=== PATIENT | female | born 1970 | race Hispanic/Latino ===

== ENCOUNTER 2018-08-27 09:22 | Emergency (ER) | payer BC ==
[2018-08-27 09:54] LABS: BASOPHILS % (AUTO) 0.4 % (0.0-5.0); EOSINOPHILS % (AUTO) 1.2 % (0.0-8.0); HEMATOCRIT 43.3 % (36-48); LYMPHOCYTES % (AUTO) 26.5 % (21.0-51.0); MEAN CORPUSCULAR HEMOGLOBIN 29.9 pg (27.0-33.0); MEAN CORPUSCULAR HGB CONC 33.9 g/dL (32.0-36.0); MEAN CORPUSCULAR VOLUME 88.3 fL (79-99); MONOCYTES % (AUTO) 7.1 % (3.0-13.0); NEUTROPHILS % (AUTO) 64.8 % (40.0-77.0); NUCLEATED RED BLOOD CELLS 0.1 % (0.0-0.19); PLATELET COUNT (AUTO) 170 K/uL (130-400); RED BLOOD CELL COUNT(AUTO) 4.91 MIL/uL (4.00-5.50); RED CELL DISTRIBUTION WIDTH 13.4 % (11.0-15.5); WHITE BLOOD COUNT (AUTO) 6.1 K/uL (4.8-10.8)
[2018-08-27 10:04] LABS: CREATININE 0.3 mg/dL (0.5-1.5); POTASSIUM 3.4 mmol/L (3.5-5.1)
[2018-08-27 10:07] LABS: INR 1.04 (0.85-1.15); PARTIAL THROMBOPLASTIN TIME 29.5 SEC (26.3-35.5); PROTHROMBIN TIME 10.9 SEC (9.6-11.6)
[2018-08-27 10:18] LABS: B-TYPE NATRIURETIC PEPTIDE 18 pg/mL (0-100)
[2018-08-27 10:19] LABS: ALBUMIN 4.3 g/dL (3.5-5.0); TOTAL PROTEIN, SERUM 8.8 g/dL (6.0-8.3)
== END 2018-08-27 14:03 | disposition home or self-care (01) ==
LOC: EDH 09:22
DX: R07.89 Other chest pain (principal); I10 Essential (primary) hypertension; Z90.710 Acquired absence of both cervix and uterus; Z88.2 Allergy status to sulfonamides; Z88.1 Allergy status to other antibiotic agents; Z88.8 Allergy status to other drugs, medicaments and biological substances
CPT/HCPCS: 36415; 71045; 80053; 82550; 83874; 83880; 84484; 85025; 85610; 85730; 93005

== ENCOUNTER 2020-11-06 13:24 | Inpatient (IN) | payer BC ==
[~2020-11-06] VITALS: Ht 152.4 cm; Wt 95.0 kg
[2020-11-06 13:38] VITALS: BP 140/79
[2020-11-06 13:55] LABS: BASOPHILS % (AUTO) 0.3 % (0.0-5.0); HEMATOCRIT 38.4 % (36-48); LYMPHOCYTES % (AUTO) 31.5 % (21.0-51.0); MEAN CORPUSCULAR HEMOGLOBIN 28.5 pg (27.0-33.0); MEAN CORPUSCULAR VOLUME 88.9 fL (79-99); MONOCYTES % (AUTO) 8.3 % (3.0-13.0); NEUTROPHILS % (AUTO) 56.6 % (40.0-77.0); PLATELET COUNT (AUTO) 171 K/uL (130-400); RED BLOOD CELL COUNT(AUTO) 4.32 MIL/uL (4.00-5.50); RED CELL DISTRIBUTION WIDTH 12.6 % (11.0-15.5); WHITE BLOOD COUNT (AUTO) 6.3 K/uL (4.8-10.8)
[2020-11-06] MEDS ORDERED: NITROGLYCERIN 0.4 MG SL TAB SL PRN (14:00)
[2020-11-06] MEDS ORDERED: 0.9%NACL 10ML VIAL IVP PRN (14:00)
[2020-11-06] MEDS ORDERED: ZOLPIDEM TARTRATE 5 MG TAB PO PRN (14:00)
[2020-11-06] MEDS ORDERED: LACTULOSE 20 GM/30 ML UDCUP PO PRN (14:00)
[2020-11-06] MEDS ORDERED: MAG/ALUM/SIMETH 30 ML UDCUP PO PRN (14:00)
[2020-11-06] MEDS ORDERED: ACETAMINOPHEN 325 MG TAB PO PRN (14:00)
[2020-11-06] MEDS ORDERED: 0.9%NACL 10ML VIAL IVP SCH (14:00)
[2020-11-06] MEDS ORDERED: ONDANSETRON 4MG INJ IVP PRN (14:00)
[2020-11-06] MEDS ORDERED: DIPHENHYDRAMINE HCL 25 MG CAPSULE PO PRN (14:00)
[2020-11-06 14:05] LABS: CARBON DIOXIDE 32 mmol/L (21-32); CHLORIDE 108 mmol/L (101-111); CREATININE 0.7 mg/dL (0.5-1.5); GLOMERULAR FILTR. RATE CALC 95 mL/min (>60); GLUCOSE,RANDOM 100 mg/dL (70-105); POTASSIUM 4.1 mmol/L (3.5-5.1); SODIUM SERUM 146 mmol/L (136-145); UREA NITROGEN, BLOOD 14 mg/dL (7-18)
[2020-11-06 14:16] LABS: ALANINE AMINOTRANSFERASE 21 U/L (12-78); ALBUMIN 3.6 g/dL (3.5-5.0); ASPARTATE AMINOTRANSFERASE 21 U/L (10-37); BILIRUBIN,DIRECT 0.1 mg/dL (0.0-0.3); BILIRUBIN,TOTAL 0.2 mg/dL (0.2-1.0); CREATINE KINASE, TOTAL 55 U/L (21-232); MYOGLOBIN 14 ng/mL (10-92); TOTAL PROTEIN, SERUM 7.7 g/dL (6.0-8.3); TROPONIN I < 0.04 ng/mL (0.00-0.06)
[2020-11-06 16:52] VITALS: BP 138/80
[2020-11-06] MEDS: FAMOTIDINE 20MG TAB PO SCH (22:14)
[2020-11-06] MEDS: ENOXAPARIN SODIUM 100 MG/1 ML SQ SCH (22:16)
[2020-11-07] VITALS (9 sets, daily range): BP systolic 114–174; BP diastolic 55–89
[2020-11-07 06:05] LABS: BASOPHILS % (AUTO) 0.3 % (0.0-5.0); EOSINOPHILS % (AUTO) 3.4 % (0.0-8.0); HEMATOCRIT 38.6 % (36-48); LYMPHOCYTES % (AUTO) 33.8 % (21.0-51.0); MEAN CORPUSCULAR HEMOGLOBIN 27.4 pg (27.0-33.0); MEAN CORPUSCULAR HGB CONC 30.8 g/dL (32.0-36.0); MEAN CORPUSCULAR VOLUME 88.9 fL (79-99); MONOCYTES % (AUTO) 7.7 % (3.0-13.0); NEUTROPHILS % (AUTO) 54.6 % (40.0-77.0); PLATELET COUNT (AUTO) 169 K/uL (130-400); RED BLOOD CELL COUNT(AUTO) 4.34 MIL/uL (4.00-5.50); RED CELL DISTRIBUTION WIDTH 12.7 % (11.0-15.5); WHITE BLOOD COUNT (AUTO) 5.8 K/uL (4.8-10.8)
[2020-11-07 06:31] LABS: CARBON DIOXIDE 29 mmol/L (21-32); CHLORIDE 107 mmol/L (101-111); CREATINE KINASE, TOTAL 37 U/L (21-232); CREATININE 0.6 mg/dL (0.5-1.5); GLOMERULAR FILTR. RATE CALC 113 mL/min (>60); GLUCOSE,RANDOM 87 mg/dL (70-105); MYOGLOBIN 22 ng/mL (10-92); POTASSIUM 3.8 mmol/L (3.5-5.1); SODIUM SERUM 143 mmol/L (136-145); TROPONIN I < 0.04 ng/mL (0.00-0.06); UREA NITROGEN, BLOOD 15 mg/dL (7-18)
[2020-11-07] MEDS ORDERED: SPIR25TA PO (08:44)
[2020-11-07] MEDS: ENOXAPARIN SODIUM 100 MG/1 ML SQ SCH ×2 (09:00→20:46)
[2020-11-07] MEDS: ASPIRIN 325MG EC TAB PO SCH (09:28)
[2020-11-07] MEDS: CLOPIDOGREL 75MG TAB PO SCH (09:28)
[2020-11-07] MEDS: FAMOTIDINE 20MG TAB PO SCH ×2 (09:28→20:46)
[2020-11-07] MEDS ORDERED: REGADENOSON 0.4 MG/5 ML PF SYG IVP SCH (11:15)
[2020-11-07 22:13] LABS: CREATINE KINASE, TOTAL 46 U/L (21-232); MYOGLOBIN 17 ng/mL (10-92); TROPONIN I < 0.04 ng/mL (0.00-0.06)
[2020-11-07] MEDS ORDERED: MULT-1203 PO (23:05)
[2020-11-07] MEDS ORDERED: FISH1CAP27 PO (23:05)
[2020-11-08] VITALS (7 sets, daily range): BP systolic 118–137; BP diastolic 59–75
[2020-11-08] MEDS: FAMOTIDINE 20MG TAB PO SCH ×2 (10:44→21:11)
[2020-11-08] MEDS: ASPIRIN 325MG EC TAB PO SCH (10:44)
[2020-11-08] MEDS: MULTIVITAMIN TABLET PO SCH (10:45)
[2020-11-08] MEDS: ENOXAPARIN SODIUM 100 MG/1 ML SQ SCH ×2 (10:45→21:11)
[2020-11-08] MEDS: SPIRONOLACTONE 25 MG TAB PO SCH (10:45)
[2020-11-08] MEDS: FISH OIL 1000 MG/CAP PO SCH (10:45)
[2020-11-08] MEDS: CLOPIDOGREL 75MG TAB PO SCH (10:48)
[2020-11-09 04:41] VITALS: BP 127/70
[2020-11-09 08:03] VITALS: BP 122/59
[2020-11-09] MEDS: FAMOTIDINE 20MG TAB PO SCH ×2 (09:41→20:30)
[2020-11-09] MEDS: CLOPIDOGREL 75MG TAB PO SCH (09:41)
[2020-11-09] MEDS: FISH OIL 1000 MG/CAP PO SCH (09:41)
[2020-11-09] MEDS: MULTIVITAMIN TABLET PO SCH (09:41)
[2020-11-09] MEDS: ENOXAPARIN SODIUM 100 MG/1 ML SQ SCH ×2 (09:41→20:30)
[2020-11-09] MEDS: SPIRONOLACTONE 25 MG TAB PO SCH (09:42)
[2020-11-09] MEDS: ASPIRIN 325MG EC TAB PO SCH (09:42)
[2020-11-09 11:40] VITALS: BP 129/60
[2020-11-09 16:35] VITALS: BP 100/77
[2020-11-09 20:02] VITALS: BP 134/69
[2020-11-09 23:00] VITALS: BP 162/67
[2020-11-10] VITALS (11 sets, daily range): BP systolic 114–142; BP diastolic 60–79
[2020-11-10 05:17] LABS: INR 1.05 (0.85-1.15); PROTHROMBIN TIME 11.4 SEC (9.6-11.6)
[2020-11-10] MEDS: SPIRONOLACTONE 25 MG TAB PO SCH (09:00)
[2020-11-10] MEDS: ASPIRIN 325MG EC TAB PO SCH (09:00)
[2020-11-10] MEDS: MULTIVITAMIN TABLET PO SCH (09:00)
[2020-11-10] MEDS: FISH OIL 1000 MG/CAP PO SCH (09:00)
[2020-11-10] MEDS: FAMOTIDINE 20MG TAB PO SCH (09:00)
[2020-11-10] MEDS: CLOPIDOGREL 75MG TAB PO SCH (09:00)
[2020-11-10] MEDS ORDERED: SODIUM BICARB 50MEQ 50ML VIAL 50 ML ONE (11:23)
[2020-11-10] MEDS ORDERED: NITROGLYCERIN 50MG VIAL IV ONE (11:24)
[2020-11-10] MEDS ORDERED: LIDOCAINE HCL 400MG/20ML VIAL ONE (11:24)
[2020-11-10] MEDS ORDERED: IOHEXOL-350 50ML VIAL IV ONE (11:24)
[2020-11-10] MEDS ORDERED: MIDAZOLAM HCL 1 MG/ML 2ML VIAL ONE (11:24)
[2020-11-10] MEDS ORDERED: IOHEXOL 350 MG/ML 100ML INFUS..BTL IV ONE (11:24)
[2020-11-10] MEDS ORDERED: FENTANYL CITRATE PF 50 MCG/1 ML 2ML VIAL ONE (11:24)
[2020-11-10] MEDS ORDERED: HEPARIN 10,000 UNIT/10ML (1,000 UNIT/ML) VIAL ONE (12:06)
[2020-11-10] MEDS ORDERED: NICARDIPINE 25MG INJ IV ONE (12:06)
[2020-11-10] MEDS ORDERED: OMEP40CA21 PO (13:30)
[2020-11-10] MEDS ORDERED: 0.9%NACL 1000ML 1,000 ML IV SCH (13:30)
== END 2020-11-10 20:26 | disposition home or self-care (01) | DRG 287 ==
LOC: EDH 13:24 → OBSVTOIN 13:25 → EDHIP 13:25 → 3DH 11-07 21:45
PROVIDERS: ADMIT Internal Medicine; ATTEND Internal Medicine
PROC: 4A023N7 Measurement of Cardiac Sampling and Pressure, Left Heart, Percutaneous Approach (ICD-10-PCS; principal; 2020-11-10)
PROC: B2111ZZ Fluoroscopy of Multiple Coronary Arteries using Low Osmolar Contrast (ICD-10-PCS; 2020-11-10)
PROC: B2151ZZ Fluoroscopy of Left Heart using Low Osmolar Contrast (ICD-10-PCS; 2020-11-10)
DX: I24.9 Acute ischemic heart disease, unspecified (principal); Z68.41 Body mass index [BMI] 40.0-44.9, adult; I11.9 Hypertensive heart disease without heart failure; J44.9 Chronic obstructive pulmonary disease, unspecified; E78.5 Hyperlipidemia, unspecified; E66.9 Obesity, unspecified; Z88.1 Allergy status to other antibiotic agents; Z82.49 Family history of ischemic heart disease and other diseases of the circulatory system; Z88.2 Allergy status to sulfonamides; Z88.8 Allergy status to other drugs, medicaments and biological substances
CPT/HCPCS: 36415; 78452; 80048; 80076; 82550; 83874; 84484; 85025; 85610; 93005; 93017; 93458; 96374; 99156; 99157; A9500; G0378; J1644; J1650; J2250; J2785; J3010; J3490; Q9967

== ENCOUNTER → 2020-11-15 | Outpatient (CLI) | payer BC ==
[~2020-11-15] MED LIST: FISH1CAP27 PO; MULT-1203 PO; SPIR25TA PO
== END | disposition home or self-care (01) ==
LOC: RAH 10:08
PROVIDERS: ATTEND Internal Medicine Cardiovascular Disease
DX: R60.0 Localized edema (principal)
CPT/HCPCS: 93931; 93971

== ENCOUNTER → 2021-01-10 | Outpatient (CLI) | payer BC | END | disposition home or self-care (01) | LOC: SLP 20:20 | PROVIDERS: ATTEND Internal Medicine Cardiovascular Disease | DX: G47.33 Obstructive sleep apnea (adult) (pediatric) (principal); R51.9 Headache, unspecified; I10 Essential (primary) hypertension; E66.9 Obesity, unspecified; R35.1 Nocturia | CPT/HCPCS: 95810 ==

== ENCOUNTER 2021-10-30 09:27 | Emergency (ER) | payer BC ==
[~2021-10-30] VITALS: Ht 152.4 cm; Wt 93.9 kg
[2021-10-30 10:23] LABS: BASOPHILS % (AUTO) 0.5 % (0.0-5.0); EOSINOPHILS % (AUTO) 1.3 % (0.0-8.0); HEMATOCRIT 40.7 % (36-48); LYMPHOCYTES % (AUTO) 26.3 % (21.0-51.0); MEAN CORPUSCULAR HGB CONC 31.4 g/dL (32.0-36.0); MEAN CORPUSCULAR VOLUME 89.1 fL (79-99); MONOCYTES % (AUTO) 7.6 % (3.0-13.0); NEUTROPHILS % (AUTO) 63.8 % (40.0-77.0); PLATELET COUNT (AUTO) 172 K/uL (130-400); RED BLOOD CELL COUNT(AUTO) 4.57 MIL/uL (4.00-5.50); RED CELL DISTRIBUTION WIDTH 12.1 % (11.0-15.5); WHITE BLOOD COUNT (AUTO) 6.4 K/uL (4.8-10.8)
[2021-10-30] MEDS ORDERED: KETOROLAC 30MG VIAL (30MG/ML) IVP ONE (10:30)
[2021-10-30 10:33] LABS: CREATININE 0.6 mg/dL (0.5-1.5)
[2021-10-30 10:38] LABS: ALBUMIN 3.7 g/dL (3.5-5.0); BILIRUBIN,TOTAL 0.5 mg/dL (0.2-1.0); TOTAL PROTEIN, SERUM 7.8 g/dL (6.0-8.3)
[2021-10-30 12:28] VITALS: BP 116/75
== END 2021-10-30 12:32 | disposition home or self-care (01) ==
LOC: EDH 09:27
DX: R07.89 Other chest pain (principal); I10 Essential (primary) hypertension; Z88.2 Allergy status to sulfonamides; Z88.1 Allergy status to other antibiotic agents; Z88.8 Allergy status to other drugs, medicaments and biological substances; Z79.899 Other long term (current) drug therapy; Z98.890 Other specified postprocedural states
CPT/HCPCS: 36415; 71045; 80053; 84484; 85025; 85378; 85651; 86140; 93005; 93306; 93356; 96374; 99284; J1885